=== PATIENT | female | born 1970 | race Two or more races ===

== ENCOUNTER → 2022-02-03 14:29 | Outpatient (BNVA) | payer BC, SELFPAY | PROVIDERS: PCP Nurse Practitioner Family; Visit Provider Nurse Practitioner Family | DX: G20 Parkinson's disease (principal) ==

== ENCOUNTER → 2022-09-26 14:56 | Outpatient (BNVA) | payer BC, MEDICAID, SELFPAY | PROVIDERS: Visit Provider Nurse Practitioner Family | DX: G20 Parkinson's disease (principal) ==

== ENCOUNTER → 2023-02-20 09:24 | Outpatient (BNVA) | payer OTHER, MEDICAID, SELFPAY | PROVIDERS: Visit Provider Nurse Practitioner Family ==

== ENCOUNTER 2023-04-05 08:29 | Outpatient (REF) | payer OTHER, MEDICAID, SELFPAY ==
--- NOTE | 2023-04-05 08:40 | EMG_ITS ---
Right median and ulnar motor and sensory studies were performed. Right radial sensory study was performed. Right median and lateral antecubital sensory studies were performed and paraspinal muscles were tested with a needle. IMPRESSION: This is an unremarkable study with no significant abnormality. MD FARIDA Pierce/JESSIKA / [id number]
== END 2023-04-05 08:30 | disposition home or self-care (01) ==
LOC: HO.NEURO 08:29
PROVIDERS: Visit Provider Nurse Practitioner Family
DX: G20 Parkinson's disease (principal); M79.601 Pain in right arm; R29.898 Other symptoms and signs involving the musculoskeletal system
CPT/HCPCS: 95886; 95910

== ENCOUNTER 2023-04-12 10:03 | Outpatient (AMB) | payer OTHER, MEDICAID, SELFPAY ==
--- NOTE | 2023-04-12 10:21 | A.OFFVIS_ITS ---
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 Her pain starts in the right thumb and radiates up the arm to the shoulder. Her pain is tolerable at rest but when she uses the thhumb/arm while getting dressed or other grasping activities she has a significant increase in pain. denies numbness and tingling. 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 She complains of radial sided wrist pain, worse with pinching and gripping activities. She says this has been present for some time, and radiates up into her shoulder when painful. She denies any prior treatment She has a hx of Parkinson's disease PFSH Surgical History (Updated 02/20/23 @ 09:38 by Eunice Cobos CMA) Hx laparoscopic cholecystectomy Social History (Updated 02/20/23 @ 09:39 by Eunice Cobos CMA) Alcohol intake: current Alcohol intake frequency: does not drink Patient Tobacco Use Status: Never used Tobacco Review of Systems Const All systems reviewed & are unremarkable except as noted in HPI and below Physical Exam Const General: no acute distress, alert and awake Orientation/consciousness: patient oriented x3 HEENT Head: Yes normocephalic and Yes atraumatic Eyes EOM: EOMs intact bilaterally Resp Effort & Inspection: normal respiratory effort and able to speak in complete sentences Cardio Jugular venous distension: no JVD Skin General skin exam: turgor normal Rashes: no rashes Neuro General: patient oriented x3 Extrem Other: Right Hand: Positive Katt test right wrist skin c/d/i Full rom 2+ radial pulse Psych Appearance: grossly normal Affect: normal affect Attitude: cooperative Office Procedures Joint Injection/Drain Joint Injection/Drain Details: Injected 1 mL of Decadron and 1 mL 1% lidocaine and 1 mL of 0.25% Marcaine. Site was prepped using aseptic technique. Patient tolerated the procedure well. Primary Site: other (right wrist ( dequervain's)) Approach Used: other (Dorsal first compartment) Coding - Small Joint Procedure code (CPT) selection complete Results Reviewed Results Reviewed: 04/12/23 10:45 Lidocaine HCl 1 % [Xylocaine 1 %] 2 ml .ROUTE .STK-MED ONE 04/12/23 10:46 BUPivacaine MPF 0.25 % [Sensorcaine-MPF 0.25% 10 ML] 10 ml .ROUTE .STK-MED ONE dexAMETHasone sod phosphate [Decadron] 4 mg .ROUTE .STK-MED ONE Assessment & Plan Assessment & Plan (1) De Quervain's disease (radial styloid tenosynovitis): Code(s): M65.4 - Radial styloid tenosynovitis [de Quervain] Plan: This is a 52 year old woman with right De Quervains. She has pain with pinching and gripping activities. I injected her right 1st dorsal compartment, which she tolerated well, and she was fitted for a Neoprene thumb spica splint to wear with daily activity. I ordered OT for her, she can follow up with nakul Huang. Plan Scribed for Shay Bocanegra MD by Everett Terrazas, medical office coordinator, on 04/12/23 at 10:50 AM, EST. Orders: Orders OT Evaluation and Treatment Today M65.4 - Radial styloid tenosynovitis [de Quervain] Coding Level of Care Code New Pt Level 3 (40174) Diagnoses De Quervain's disease (radial styloid tenosynovitis) M65.4 CPT Codes Coding - - Small joint: - Small Joint ([id number])
== END 2023-04-12 11:11 | disposition home or self-care (01) ==
PROVIDERS: Visit Provider Orthopaedic Surgery
DX: M65.4 Radial styloid tenosynovitis [de Quervain] (principal)
CPT/HCPCS: 20550; 99203

== ENCOUNTER → 2023-04-12 10:03 | Outpatient (BNVA) | payer OTHER, MEDICAID, SELFPAY | PROVIDERS: Visit Provider Orthopaedic Surgery | DX: M65.4 Radial styloid tenosynovitis [de Quervain] (principal) | CPT/HCPCS: 20600; J1100 ==

== ENCOUNTER 2023-06-26 09:43 | Outpatient (AMB) | payer OTHER, MEDICAID, SELFPAY ==
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
[2023-06-26 10:14] VITALS: BP 112/62; PULSE 73; O2SAT 97
== END 2023-06-26 11:14 | disposition home or self-care (01) ==
PROVIDERS: Visit Provider Nurse Practitioner Family
DX: G20.A2 Parkinson's disease without dyskinesia, with fluctuations (principal); R29.6 Repeated falls
CPT/HCPCS: 99214

== ENCOUNTER → 2023-06-26 09:43 | Outpatient (BNVA) | payer OTHER, MEDICAID, SELFPAY | PROVIDERS: Visit Provider Nurse Practitioner Family ==

== ENCOUNTER 2023-10-05 12:47 | Outpatient (AMB) | payer OTHER, MEDICAID, SELFPAY ==
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
[2023-10-05 12:54] VITALS: BP 118/76; PULSE 74; RESP 17; O2SAT 99; BMI 32.1
== END 2023-10-05 13:39 | disposition home or self-care (01) ==
PROVIDERS: Visit Provider Nurse Practitioner Family
DX: G20.A1 Parkinson's disease without dyskinesia, without mention of fluctuations (principal); R26.9 Unspecified abnormalities of gait and mobility
CPT/HCPCS: 99214

== ENCOUNTER → 2023-10-05 12:47 | Outpatient (BNVA) | payer OTHER, MEDICAID, SELFPAY | PROVIDERS: Visit Provider Nurse Practitioner Family ==

== ENCOUNTER 2024-01-08 12:54 | Outpatient (AMB) | payer OTHER, MEDICAID, SELFPAY ==
--- NOTE | 2024-01-08 13:01 | A.OFFVIS_ITS ---
Vital Signs 01/08/24 13:15 Height 5 ft 1 in Weight 173 lb 8 oz BMI 32.8 BP 115/70 Blood Pressure Location Lt brachial Position Sitting Pulse 72 Pulse Source Pulse Oximeter Pulse Oximetry (%) 96 Oxygen Delivery Method Room Air Intake Visit Reasons: Follow up - Confirmed Intake Note: Patient presents for f/u. Need adjustments on medications but not sure which ones. Tremors are getting worse especially during the night. Having difficulty sleeping at night and doesn't have energy to function the next day. Pt. would like therapy at home for walking and hands. Allergies lisinopril Allergy (Unknown, Verified 01/08/24 13:10) Cough Medication List - Last Reconciled 01/08/24 by URBAN Valentin amantadine HCl 50 - 100 mg (0.5 - 1 x 100 mg) PO BID 30 days carbidopa-levodopa 48.75-195 mg ER (Rytary) 1 cap PO TID 30 days hydrochlorothiazide 25 mg PO DAILY insulin detemir U-100 (Levemir U-100 Insulin) 40 units subcut BEDTIME losartan 50 mg PO DAILY magnesium oxide 400 mg PO BEDTIME 30 days pen needle, diabetic (BD Ultra-Fine Mini Pen Needle) As directed pramipexole ER 3 mg PO BEDTIME 30 days semaglutide (Ozempic) 0.5 mg subcut QWEEK HPI Comments Details: 53-yr-old female presents for f/u visit. Pt denies any significant interval medical history changes. Pt notes that she has been having episodes of nausea and vomiting. She thought this was d/t her Pramipexole Er 3mg, so she stopped it. However, she has still had some episodes of N/V in the am, and now she thinks this may be d/t her blood sugar being too low. She has PCP appt tomorrow to discuss this. Pt's current PD medication regimen: Rytary 48.75-195mg 1 cap tid (6am, 4-5pm, and at times 11pm). Amantadine 100mg- 1 tab bid (6am and 4-5pm). She is not currently taking Pramipexole 3mg ER qhs. ADL's: Slow, needs to sit. Does need more help. She recently dropped her burrito on her and burnt her arm. Swallowing: No issues Drooling: Mild Orthostatic lightheadedness: Some, brief Constipation: Denies Urinary symptoms: No issues Tremor: Some tremor in her hands Dyskinesia: Denies Stiffness: Her feet become stiff and stuck- prevents her from sleeping. Worse since stopping Pramipexole. Gait changes: Walking is also slower. Having more difficulty standing up. Freezing: Denies Falls: A few falls- no injuries. Mood: States it is ok. Hallucinations: None Memory: No issues. Sleep: Not sleeping as well. Exercise: Trying to walk more. [facility] Medical History (Updated 01/08/24 @ 13:50 by URBAN Valentin) Parkinson's disease Surgical History Hx laparoscopic cholecystectomy Social History Alcohol intake: current Alcohol intake frequency: does not drink Patient Tobacco Use Status: Never used Tobacco Review of Systems Const All systems reviewed & are unremarkable except as noted in HPI and below Physical Exam Vital Signs: Last Vital Signs Pulse 72 01/08/24 13:15 BP 115/70 01/08/24 13:15 Pulse Ox 96 01/08/24 13:15 Oxygen Delivery Method Room Air 01/08/24 13:15 BMI result Body Mass Index 32.8 Const General: cooperative and no acute distress Resp Effort & Inspection: normal respiratory effort and able to speak in complete sentences Neuro Other: General: Alert and oriented x3 Expression: Mild decreased expression Voice: Softer voice Tremor: Mild LUE rest tremor Tone: Mild tone, more so on left. Dyskinesia: None FFM: Bradykinesia, more so on left Foot taps: Bradykinesia, more so on left. Gait: Stance easier today, short steps with low floor clearance. Steady with walker. Psych: Pleasant affect Assessment & Plan Assessment & Plan (1) Parkinson's disease without dyskinesia: Code(s): G20.A1 - Parkinson's disease without dyskinesia, without mention of fluctuations Category: Medical (2) Falls: Code(s): W19.XXXA - Unspecified fall, initial encounter Category: Medical (3) Gait difficulty: Code(s): R26.9 - Unspecified abnormalities of gait and mobility Category: Medical (4) Leg cramps: Code(s): R25.2 - Cramp and spasm Category: Medical (5) Rigidity: Code(s): R29.898 - Other symptoms and signs involving the musculoskeletal system Category: Medical Plan f/u w/ PCP as scheduled to optimize blood sugar control. If N/V persists, consider GI consult. Will request home VNA services- as pt is homebound d/t pt needs assist of 1 and walker to leave home safely. Pt does not drive. Home PT eval & Tx- for home safety, rigidity, mobility, gait eval & tx Home OT eval & tx- for home safety, rigidity, tremor, ADL, adaptive equipment eval & tx For Parkinson's: Continue Rytary 48.75-195mg 1 cap tid. . Resume Pramipexole at lower dose of 2.25mg ER, may use Pramipexole IR 02.5mg qhs prn stiffness. Monitor N/V. Continue Amantadine 100mg- 1 tab bid. Continue Magnesium 400mg qhs. Future considerations: further Rytary adjustment or adjusting Amantadine to Gocovri. ? f/u in 6 months or sooner prn. Orders: [facility]errals [facility] Referral G20.A1 - Parkinson's disease without dyskinesia, without mention of fluctuations, R25.1 - Tremor, unspecified, R25.2 - Cramp and spasm, R26.9 - Unspecified abnormalities of gait and mobility, R29.898 - Other symptoms and signs involving the musculoskeletal system, W19.XXXA - Unspecified fall, initial encounter Medications: New pramipexole ER 2.25 mg PO BEDTIME 30 tabs 3RF 30 days pramipexole may take w/ Pramipexole ER 2.25mg tab 0.25 mg PO BEDTIME PRN 90 tabs 3RF stiffness 30 days Discontinued pramipexole ER Discontinued Reason: Doctor's Order 3 mg PO BEDTIME 30 days 30 tabs 6RF Coding Level of Care Code Est Pt Level 4 (69956) Diagnoses Parkinson's disease without dyskinesia G20.A1 Falls W19.XXXA Gait difficulty R26.9 Leg cramps R25.2 Rigidity R29.898
[2024-01-08 13:15] VITALS: BP 115/70; PULSE 72; O2SAT 96; BMI 32.8
== END 2024-01-08 13:58 | disposition home or self-care (01) ==
PROVIDERS: Visit Provider Nurse Practitioner Family
DX: G20.A1 Parkinson's disease without dyskinesia, without mention of fluctuations (principal); R29.6 Repeated falls; R26.9 Unspecified abnormalities of gait and mobility; R29.898 Other symptoms and signs involving the musculoskeletal system
CPT/HCPCS: 99214

== ENCOUNTER → 2024-01-08 12:54 | Outpatient (BNVA) | payer OTHER, MEDICAID, SELFPAY | PROVIDERS: Visit Provider Nurse Practitioner Family ==

== ENCOUNTER 2024-09-18 14:10 | Outpatient (AMB) | payer MEDICAID, SELFPAY ==
[2024-09-18 14:24] VITALS: BP 154/88; PULSE 79; O2SAT 96; BMI 36.3
--- NOTE | 2024-09-18 14:24 | MHC.OFFVIS ---
Vital Signs 09/18/24 14:24 Height 5 ft 1 in Weight 192 lb BMI 36.3 BP 154/88 H Blood Pressure Location Rt brachial Position Sitting Pulse 79 Pulse Source Pulse Oximeter Pulse Oximetry (%) 96 Oxygen Delivery Method Room Air Intake Visit Reasons: 6 month F/U Asset Administrator Required: No Accompanied by: Friend Allergies lisinopril Allergy (Unknown, Verified 09/18/24 14:26) Cough Medication List - Last Reconciled 09/18/24 by URBAN Valentin amantadine HCl 50 - 100 mg (0.5 - 1 x 100 mg) PO BID 30 days carbidopa-levodopa 48.75-195 mg ER (Rytary) 2 caps PO QID 30 days insulin degludec (Tresiba FlexTouch U-100 insulin) 25 units subcut DAILY losartan 50 mg PO DAILY magnesium oxide 400 mg PO BEDTIME 30 days pen needle, diabetic (BD Ultra-Fine Mini Pen Needle) As directed semaglutide (Ozempic) 0.5 mg subcut QWEEK HPI Comments Details: 54-yr-old female presents for f/u visit of Parkinson's. Pt reports she is recovering from a URI. Pt reports she is not sleeping as well, which she attributes to BLE toe/foot stiffness/cramping and at other times to left sided neck/head tightness/soreness. She thinks maybe the neck discomfort is from her recent URI and her pillow positioning. She wonders if it is ok to take chamomile tea or CBD gummies. She has stopped the Pramipexole as it started to cause N/V after she underwent choleycystectomy. Thus, after the last visit, her Rytary was increased from 1 cap tid to 2 caps tid. Pt's current PD medication regimen: Rytary 48.75-195mg 2 caps tid (6am, 4-5pm, and at times 10-11pm). Amantadine 100mg- 1 tab bid (6am and 4-5pm). States Rytary wears off before her next Rytary dose and takes an 1-1.5 hour(s) to kick in. ADL's: Slow, needs to sit. Does need more help. Swallowing: No issues Drooling: Mild Orthostatic lightheadedness: Some, brief Constipation: Denies w/ taking Miralax. Urinary symptoms: No issues Tremor: Sometimes in her hands Dyskinesia: Denies Stiffness: Her feet become stiff and stuck- during the day and night as her Rytary wears off. Gait changes: Walking is better- now can walk with a cane, but she has to be careful d/t [place] knee pain. Was recently dx'd w/ left knee OA- by [facility] PCP. Freezing: Denies Falls: She falls onto her knees. Mood: Mood can be depressed if she is not sleeping well. Hallucinations: None Memory: No issues. Sleep: Not sleeping as well- as above Exercise: Trying to walk more. [facility] Medical History (Updated 08/14/24 @ 09:34 by Gay Valderrama) Parkinson's disease Surgical History Hx laparoscopic cholecystectomy Social History Alcohol intake: current Alcohol intake frequency: does not drink Patient Tobacco Use Status: Never used Tobacco Physical Exam Vital Signs: Last Vital Signs Pulse 79 09/18/24 14:24 BP 154/88 H 09/18/24 14:24 Pulse Ox 96 09/18/24 14:24 Oxygen Delivery Method Room Air 09/18/24 14:24 BMI result Body Mass Index 36.3 Const General: cooperative and no acute distress Resp Effort & Inspection: normal respiratory effort and able to speak in complete sentences Neuro Other: General: Alert and oriented x3 Expression: Mild decreased expression Voice: Softer voice Tremor: Mild LUE rest tremor Cervical: Bilateral lateral and posterior cervical tightness, more so on left. Tone: Increased BUE tone, more so on left. Dyskinesia: None FFM: Bradykinesia, more so on left Foot taps: Bradykinesia, more so on left. Gait: Stands slowly w/o difficulty, short steps with low floor clearance. Steady with cane. Psych: Pleasant affect Assessment & Plan Assessment & Plan (1) Parkinson's disease without dyskinesia: Code(s): G20.A1 - Parkinson's disease without dyskinesia, without mention of fluctuations Category: Medical (2) Falls: Code(s): W19.XXXA - Unspecified fall, initial encounter Category: Medical (3) Gait difficulty: Code(s): R26.9 - Unspecified abnormalities of gait and mobility Category: Medical (4) Leg cramps: Code(s): R25.2 - Cramp and spasm Category: Medical (5) Rigidity: Code(s): R29.898 - Other symptoms and signs involving the musculoskeletal system Category: Medical Plan For neck tightness: Resume magnesium 400 mg q.h.s.. Try alternate pillow, for side sleeping. If ineffective, consider outpatient PT. For Parkinson's: Increase Rytary 48.75-195mg from 2 caps t.i.d. to 2 caps q.i.d., in hopes this reduces PD off time and foot cramping. Continue Amantadine 100mg- 1 tab bid (2nd dose before 16:00, to prevent sleep disturbance) May use chamomile tea for sleep promotion. Continue increase physical activity. If knee pain worsens, consider PT a referral to ortho. Previous trials: Pramipexole ER and IR formulations caused N/V. Future considerations: further Rytary adjustment or adjusting Amantadine to Gocovri. ? f/u in 6 months or sooner prn. Medications: Changed From carbidopa-levodopa 48.75-195 mg ER (Rytary) divide evenly over waking hours 2 caps PO TID 30 days 180 caps 6RF To carbidopa-levodopa 48.75-195 mg ER (Rytary) at 6am, 11am, 4pm, 10pm 2 caps PO QID 30 days 240 caps 6RF Refilled amantadine HCl am & afternoon (take with food) 50 - 100 mg (0.5 - 1 x 100 mg) PO BID 30 days 60 tabs 6RF magnesium oxide may hold for loose stools 400 mg PO BEDTIME 30 days 30 tabs 6RF Coding Level of Care Code Est Pt Level 4 (14687) Diagnoses Parkinson's disease without dyskinesia G20.A1 Falls W19.XXXA Gait difficulty R26.9 Leg cramps R25.2 Rigidity R29.898
== END 2024-09-18 15:05 | disposition home or self-care (01) ==
PROVIDERS: Visit Provider Nurse Practitioner Family
DX: G20.A1 Parkinson's disease without dyskinesia, without mention of fluctuations (principal); R29.6 Repeated falls; R26.9 Unspecified abnormalities of gait and mobility; R29.898 Other symptoms and signs involving the musculoskeletal system
CPT/HCPCS: 99214

== ENCOUNTER → 2024-09-18 14:10 | Outpatient (BNVA) | payer MEDICAID, SELFPAY | PROVIDERS: Visit Provider Nurse Practitioner Family | DX: G20.A1 Parkinson's disease without dyskinesia, without mention of fluctuations (principal); R26.9 Unspecified abnormalities of gait and mobility; R25.2 Cramp and spasm; R29.898 Other symptoms and signs involving the musculoskeletal system; Z91.81 History of falling | CPT/HCPCS: 99212 ==

== ENCOUNTER 2025-03-25 11:02 | Outpatient (AMB) | payer OTHER, SELFPAY ==
[2025-03-25 11:07] VITALS: BP 138/94; PULSE 59; O2SAT 99; BMI 37.1
--- NOTE | 2025-03-25 11:07 | MHC.OFFVIS ---
Vital Signs 03/25/25 11:07 Height 5 ft 1 in Weight 196 lb 4 oz BMI 37.1 BP 138/94 H Blood Pressure Location Lt brachial Position Sitting Pulse 59 Pulse Source Pulse Oximeter Pulse Oximetry (%) 99 Oxygen Delivery Method Room Air Intake Visit Reasons: 6 mo follow up Intake Note: Patient presents 6 month follow up for Parkinson's. 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 Required: No Accompanied by: Friend Allergies lisinopril Allergy (Unknown, Verified 03/25/25 11:07) Cough Medication List - Last Reconciled 03/25/25 by URBAN Valentin amantadine HCl 50 - 100 mg (0.5 - 1 x 100 mg) PO BID 30 days carbidopa-levodopa 25-100 mg (Sinemet) 1 tab PO BID 30 days carbidopa-levodopa 25-100 mg ER 2 tabs PO QID 30 days diclofenac sodium 1% (Voltaren Arthritis Pain) 4.5 inches topical QID PRN 30 days insulin degludec (Tresiba FlexTouch U-100 insulin) 25 units subcut DAILY magnesium oxide 400 mg PO BEDTIME 30 days pen needle, diabetic (BD Ultra-Fine Mini Pen Needle) As directed semaglutide (Ozempic) 0.5 mg subcut QWEEK HPI Comments Details: History of Present Illness The patient is a 54-year-old female presenting with Parkinson's Disease for follow-up and management, primarily with respect to her medication schedule and its effectiveness. Since her last visit here, Rytary was discontinued due to insurance denial, and patient was started on carbidopa-levodopa ER. The patient reports that she takes carbidopa-levodopa ER (extended-release) and amantadine for her symptoms. She notes experiencing inadequate strength in the morning if she forgets her 12:00 a.m. dose, leading to a delay in her medications taking effect in the morning. This has occurred on multiple occasions when she falls asleep without taking the midnight dose. The patient reports currently taking two tablets four times a day, starting at 6:00 a.m., followed by doses at 1:00 p.m., 6:00 p.m., and 12:00 a.m. The patient also takes amantadine twice a day with the 6:00 a.m. and 6:00 p.m. dosing times. Despite the medication schedule, she experiences periods when the medication does not last between doses, sometimes attributed to stress or anxiety, which she believes reduces the medication's effectiveness. The patient denies any significant recent health changes since her last visit besides the issues with her medication timings and sleep disturbance caused by the midnight dose. She also reports symptoms of stiffness in her left toes, tremors, occasional drooling, and knee pain associated with arthritis. Additionally, the patient mentions experiencing urinary symptoms for which she uses diapers. The patient's Parkinson's Disease symptoms seem manageable with current medications, although adjustments in medication timing and administration are being considered to optimize symptom control. Overall, her symptoms fluctuate with stress levels and her daily routine. There are no reports of significant falls or serious side effects from the medications, though her arthritis-related knee pain is intermittently bothersome, especially in cold weather. Ability to do Activities of daily living (ADL's): Independent Ability to do Instrumental activities of daily living (IADL's): Independent Swallowing difficulty: Denies Cough: Denies Drooling: Denies Orthostatic lightheadedness: Denies Constipation: Denies Urinary symptoms: Denies Tremor: Denies Dyskinesia: Denies Stiffness: Denies Musculoskeletal symptoms: Denies Gait difficulties or changes: Denies Freezing episodes of gait: Denies Falls: Denies Mood difficulties or changes: Denies Hallucinations: Denies Memory difficulties or changes: Denies Sleep difficulties: Denies Exercise routine: None Socialization and cognitive activities: None Medications Pt's current PD medication regimen: CD-LD ER 25-100mg 2 tabs QID (6am, 1pm or sooner, 6pm, 12-1am). Amantadine 100mg- 1 tab bid (6am and 6pm). Wakes up at 6am Bedtime is 8pm CD-LD ER not always lasting between doses- more so if anxious. Will be off if in the am, if she misses her 12-1am dose. Pt's current PD medication regimen: none Do medication effects last between doses: Yes Current Medications: ____ Physical Exam Pt's current PD medication regimen: Carbidopa-Levodopa ER, Amantadine Do medication effects last between doses: Sometimes, no Activities of daily living (ADL's): Independent Instrumental activities of daily living (IADL's): Independent Swallowing difficulty: Denies Cough: Denies Drooling: Sometimes, not bothersome Orthostatic lightheadedness: Denies Constipation: Sometimes Urinary symptoms: Sometimes Tremor: Sometimes, not bothersome Dyskinesia: None Stiffness: Present in left toes Musculoskeletal symptoms: Arthritis in knees Gait difficulties or changes: Sometimes gets stuck while walking Freezing episodes of gait: Sometimes Falls: Sometimes, due to arthritis Mood difficulties or changes: Sometimes anxious Hallucinations: Sometimes hears name Memory difficulties or changes: Denies Sleep difficulties: Sometimes, due to medication schedule Exercise routine: Walking every morning Socialization and cognitive activities: None Gross Motor and Fine Motor Skills The patient demonstrates some difficulty with gross motor skills, specifically in walking due to knee arthritis and Parkinsonian stiffness in the left toes. Patient ambulates with the aid of a pink walker, supporting her walking needs. Her fine motor skills allow her to manage medications and general activities of daily living (ADLs) with some restrictions due to tremors and stiffness. General: Alert and oriented x3 Expression: Intact Voice: Intact Tremor: None Tone: None Dyskinesia: None Fine finger movements: Intact Foot taps: Intact Gait: Intact Psych: Normal Social History - Exercise: Patient reports walking every morning as part of her routine. - Functional Status: Patient uses a walker, indicating a partial dependence for mobility. 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 - Occupation: On disability due to Parkinson's [facility] Medical History Parkinson's disease Surgical History Hx laparoscopic cholecystectomy Social History Alcohol intake: current Alcohol intake frequency: does not drink Patient Tobacco Use Status: Never used Tobacco Physical Exam Vital Signs: Last Vital Signs Pulse 59 03/25/25 11:07 BP 138/94 H 03/25/25 11:07 Pulse Ox 99 03/25/25 11:07 Oxygen Delivery Method Room Air 03/25/25 11:07 BMI result Body Mass Index 37.1 Const General: cooperative and no acute distress Resp Effort & Inspection: normal respiratory effort and able to speak in complete sentences Neuro Other: General: Alert and oriented x3 Expression: Mild decreased expression Voice: Softer voice Tremor: No visible rest tremor today Tone: Increased BUE tone, more so on left. Dyskinesia: None FFM: Bradykinesia, more so on left Foot taps: Bradykinesia, more so on left. Gait: Stands slowly w/o difficulty, short steps with low floor clearance, lower floor clearance on left- overall steady with walker Psych: Pleasant affect Assessment & Plan Assessment & Plan (1) Parkinson's disease without dyskinesia: Code(s): G20.A1 - Parkinson's disease without dyskinesia, without mention of fluctuations Category: Medical Qualifiers: Fluctuating manifestations: with fluctuating manifestations Qualified Code(s): G20.A2 - Parkinson's disease without dyskinesia, with fluctuations (2) Leg cramps: Code(s): R25.2 - Cramp and spasm Category: Medical (3) Bilateral knee pain: Code(s): M25.561 - Pain in right knee; M25.562 - Pain in left knee Category: Medical Qualifiers: Chronicity: chronic Qualified Code(s): M25.561 - Pain in right knee; M25.562 - Pain in left knee; G89.29 - Other chronic pain Plan Discussion Notes I discussed the patient's ongoing symptoms of Parkinson's Disease and her current medication regimen. We evaluated her symptoms, particularly the difficulty experienced due to waking at night for her medication, and considered possible adjustments to optimize symptom control. I explained alternative medication schedules to enhance therapeutic duration and reduce ehdbol-pa-gnw-night dosing disturbance. We also discussed the importance of monitoring her cardiovascular and metabolic conditions in managing her Parkinson?s over time. Discussed Patient's report that the case regarding her chemical exposure as a child maybe settled soon. Also discussed that sudden changes in supplementary income could impact her health insurance coverage. Follow-up is recommended in 6 months or sooner if her symptoms become unmanageable. Patient was informed and verbally consented to the use of an ambient scribe for clinic note documentation during this visit. Plan and patient instructions Adjust carbidopa levodopa ER 25-100 mg order from to tab q.i.d. to: Carbidopa levodopa ER 25-100 m tab at 06:00, 1 tab at 08:00, 2 tabs at 12:00, 2 tabs at 16:00, 2 tabs at 20:00 Adjunct with carbidopa levodopa IR 25-100 m tab at 06:00 and 1 tab at 08:00 Continue Amantadine 100mg- 1 tab twice a day at 08:00 and 16:00 May use chamomile tea for sleep promotion. Trial Voltaren Gel for arthritis knee pain 4 times a day as needed Continue increase physical activity. If knee pain worsens, consider PT or referral to ortho. If experiencing more frequent or severe urinary symptoms, consider consulting a urologist- patient is not interested at this time Inform the office about significant income changes affecting insurance coverage. Previous trials: Pramipexole ER and IR formulations caused N/V. Rytary was helpful, but was denied by insurance. Future considerations: Resuming Rytary adjustment or adjusting Amantadine to Gocovri. ? Written instructions given to patient. Return for a follow-up appointment in 6 months or sooner if symptoms become troublesome. f/u in 6 months or sooner prn. Medications: New diclofenac sodium 1% (Voltaren Arthritis Pain) apply to bilateral knees 4.5 inches topical QID PRN 100 grams 3RF Bilateral knee pain 30 days carbidopa-levodopa 25-100 mg (Sinemet) At 06:00 and 08:00 (continue carbidopa levodopa ER as ordered) 1 tab PO BID 60 tabs 6RF 30 days Refilled carbidopa-levodopa 25-100 mg ER 2 tabs PO QID 240 tabs 1RF 30 days Discontinued carbidopa-levodopa 48.75-195 mg ER (Rytary) at 6am, 11am, 4pm, 10pm Discontinued Reason: Doctor's Order 2 caps PO QID 30 days 240 caps 6RF Coding Level of Care Code Est Pt Level 4 (09337) Diagnoses Parkinson's disease without dyskinesia, with fluctuating manifestations G20.A2 Fluctuating manifestations: with fluctuating manifestations Leg cramps R25.2 Chronic pain of both knees M25.561; M25.562; G89.29 Chronicity: chronic
== END 2025-03-25 12:05 | disposition home or self-care (01) ==
PROVIDERS: Visit Provider Nurse Practitioner Family
DX: G20.A2 Parkinson's disease without dyskinesia, with fluctuations (principal); R25.2 Cramp and spasm; M25.561 Pain in right knee; M25.562 Pain in left knee; G89.29 Other chronic pain
CPT/HCPCS: 99214

== ENCOUNTER → 2025-03-25 11:02 | Outpatient (BNVA) | payer OTHER, SELFPAY | PROVIDERS: Visit Provider Nurse Practitioner Family | DX: G20.A2 Parkinson's disease without dyskinesia, with fluctuations (principal); R25.2 Cramp and spasm; M25.561 Pain in right knee; M25.562 Pain in left knee; G89.29 Other chronic pain | CPT/HCPCS: 99212 ==